=== PATIENT | female | born 1990 | race Caucasian/White ===

== ENCOUNTER 2021-01-05 14:38 | Emergency (ER) | payer MEDICAID ==
[~2021-01-05] VITALS: Ht 167.6 cm; Wt 113.4 kg
[2021-01-05 14:53] VITALS: BP 121/77
--- NOTE | 2021-01-05 14:57 | NUR ---
PROVIDED URINE SPECIMEN AND AMBULATED TO FE
--- NOTE | 2021-01-05 16:00 | NUR ---
ASSUMED CARE. PT IS 2 WEEKS , AND CURRENTLY EXPERIENCING VAGINAL BLEEDING (SPOTTING) PT ALSO REPORTING VERY MILD CRAMPING. PT WAS SEEN TWICE AT [facility] FOR THE VAGINAL BLEEDING, AND WAS TOLD HER HCG LEVELS WERE LOW. CONCERNED. NO PMH NKDA
--- NOTE | 2021-01-05 16:10 | NUR ---
PT TAKEN TO BED 3.
[2021-01-05 16:22] LABS: BASOPHILS # (AUTO) 0.1 K/uL (0.00-0.22); BASOPHILS % (AUTO) 0.5 % (0.0-2.0); EOSINOPHILS # (AUTO) 0.1 K/uL (0-0.4); EOSINOPHILS % (AUTO) 1.3 % (0.0-4.0); HEMATOCRIT 40.1 % (36-48); HEMOGLOBIN 13.2 g/dL (12.0-16.0); LYMPHOCYTES # (AUTO) 1.8 K/uL (2.5-16.5); LYMPHOCYTES % (AUTO) 18.3 % (20.5-51.1); MEAN CORPUSCULAR HEMOGLOBIN 29 pg (27-31); MEAN CORPUSCULAR HGB CONC 33 g/dL (33-37); MEAN CORPUSCULAR VOLUME 88.6 fL (80-94); MONOCYTES # (AUTO) 0.7 K/uL (0.8-1.0); MONOCYTES % (AUTO) 7.2 % (1.7-9.3); NEUTROPHILS % (AUTO) 72.7 % (42.2-75.2); PLATELET COUNT (AUTO) 296 K/uL (140-450); RED BLOOD CELL COUNT(AUTO) 4.53 MIL/uL (4.20-5.40); RED CELL DISTRIBUTION WIDTH 13.6 % (11.6-13.7); WHITE BLOOD COUNT (AUTO) 9.6 K/uL (4.8-10.8)
--- NOTE | 2021-01-05 16:47 | NUR ---
TO ULTRASOUND FOR EXAM.
[2021-01-05 16:49] LABS: ANION GAP 11.4 (8-16); CARBON DIOXIDE 26.9 mmol/L (21-32); CREATININE 0.8 mg/dL (0.6-1.3); POTASSIUM 4.3 mmol/L (3.5-5.1)
--- NOTE | 2021-01-05 17:42 | NUR ---
DR JARA IN TO DISCUSS RESULTS WITH PATIENT AND PLAN TO FOLLOW UP WITH PMD.
[2021-01-05 17:45] VITALS: BP 129/61
--- NOTE | 2021-01-05 17:45 | NUR ---
Patient discharged with v/s stable. Written and verbal after care instructions given and explained. Patient verbalized understanding. Ambulatory with steady gait. All questions addressed prior to discharge. Advised to follow up with PMD. Copy of labs and US given to patient for follow up.
== END 2021-01-05 17:45 | disposition home or self-care (01) ==
LOC: MED 14:38
DX: O03.9 Complete or unspecified spontaneous abortion without complication (principal); Z3A.01 Less than 8 weeks gestation of pregnancy
CPT/HCPCS: 36415; 76817; 80048; 81002; 81025; 84702; 85025; 86886; 86900; 86901; 99284

== ENCOUNTER 2021-01-26 20:35 | Emergency (ER) | payer MEDICAID ==
[~2021-01-26] VITALS: Ht 165.1 cm; Wt 96.2 kg
[2021-01-26 20:45] VITALS: BP 136/82
--- NOTE | 2021-01-26 20:48 | NUR ---
TO LOBBY A/W BED AMBULATORY
[2021-01-26 21:33] LABS: BASOPHILS # (AUTO) 0.1 K/uL (0.00-0.22); BASOPHILS % (AUTO) 0.6 % (0.0-2.0); EOSINOPHILS # (AUTO) 0.2 K/uL (0-0.4); EOSINOPHILS % (AUTO) 2.1 % (0.0-4.0); HEMATOCRIT 38.8 % (36-48); HEMOGLOBIN 12.7 g/dL (12.0-16.0); LYMPHOCYTES % (AUTO) 21.2 % (20.5-51.1); MEAN CORPUSCULAR HEMOGLOBIN 29 pg (27-31); MEAN CORPUSCULAR HGB CONC 33 g/dL (33-37); MEAN CORPUSCULAR VOLUME 88.3 fL (80-94); MONOCYTES # (AUTO) 0.8 K/uL (0.8-1.0); MONOCYTES % (AUTO) 8.6 % (1.7-9.3); NEUTROPHILS # (AUTO) 6.4 K/uL (1.8-7.7); NEUTROPHILS % (AUTO) 67.5 % (42.2-75.2); PLATELET COUNT (AUTO) 294 K/uL (140-450); RED CELL DISTRIBUTION WIDTH 13.9 % (11.6-13.7); WHITE BLOOD COUNT (AUTO) 9.4 K/uL (4.8-10.8)
--- NOTE | 2021-01-26 21:38 | NUR ---
US AT BEDSIDE
[2021-01-26] MEDS ORDERED: NAPROXEN 500 MG TAB PO SCH (22:00)
[2021-01-26 22:16] LABS: APPEARANCE,URINE CLEAR (CLEAR); BILIRUBIN,URINE NEGATIVE (NEGATIVE); BLOOD, URINE TRACE-I (NEGATIVE); COLOR,URINE YELLOW (YELLOW); LEUKOCYTE ESTERASE ,URINE NEGATIVE (NEGATIVE); NITRITE, URINE NEGATIVE (NEGATIVE); PH,URINE 6.5 (5.0-9.0); UGLUCOSE NEGATIVE (NEGATIVE)
[2021-01-26] MEDS ORDERED: NAPR-54 PO (22:22)
[2021-01-26 22:25] LABS: RBC,URINE 0-5 /HPF (0-5); WBC,URINE 0-5 /HPF (0-5)
== END 2021-01-26 22:45 | disposition home or self-care (01) ==
LOC: MED 20:35
DX: O26.891 Other specified pregnancy related conditions, first trimester (principal); R10.30 Lower abdominal pain, unspecified; Z3A.01 Less than 8 weeks gestation of pregnancy; Z79.899 Other long term (current) drug therapy; Z98.890 Other specified postprocedural states
CPT/HCPCS: 36415; 76817; 81001; 81025; 84702; 85025; 86900; 86901; 87086; 99284

== ENCOUNTER 2021-02-14 23:30 | Emergency (ER) | payer MEDICAID ==
[~2021-02-14] VITALS: Ht 165.1 cm; Wt 97.5 kg
[~2021-02-14 23:30] MED LIST: NAPR-54 PO
[2021-02-14 23:56] VITALS: BP 128/74
--- NOTE | 2021-02-15 00:40 | NUR ---
PT AMBULATED TO BED #4
[2021-02-15] MEDS ORDERED: MORPHINE SULFATE 4 MG/ML SYR IVP ONE (00:45)
--- NOTE | 2021-02-15 00:45 | NUR ---
COVERING PRIMARY RN FOR LUNCH RELIEF. SEE COMPLETE ASSESSMENT
--- NOTE | 2021-02-15 00:46 | NUR ---
PT C/O 10/10 LOWER ABD PAIN. VERBAL ORDER FOR 4MG MORPHINE IVP. ORDER CARRIED OUT.
[2021-02-15] MEDS ORDERED: NACL 0.9% 1,000 ML IV ONE (00:55)
[2021-02-15 00:56] LABS: BASOPHILS # (AUTO) 0.1 K/uL (0.00-0.22); BASOPHILS % (AUTO) 0.6 % (0.0-2.0); EOSINOPHILS # (AUTO) 0.2 K/uL (0-0.4); EOSINOPHILS % (AUTO) 2.3 % (0.0-4.0); HEMATOCRIT 37.9 % (36-48); HEMOGLOBIN 12.6 g/dL (12.0-16.0); LYMPHOCYTES # (AUTO) 1.5 K/uL (2.5-16.5); MEAN CORPUSCULAR HEMOGLOBIN 29 pg (27-31); MEAN CORPUSCULAR HGB CONC 33 g/dL (33-37); MEAN CORPUSCULAR VOLUME 87.7 fL (80-94); MONOCYTES # (AUTO) 0.9 K/uL (0.8-1.0); MONOCYTES % (AUTO) 10.2 % (1.7-9.3); NEUTROPHILS # (AUTO) 6.3 K/uL (1.8-7.7); NEUTROPHILS % (AUTO) 69.9 % (42.2-75.2); PLATELET COUNT (AUTO) 288 K/uL (140-450); RED BLOOD CELL COUNT(AUTO) 4.32 MIL/uL (4.20-5.40); RED CELL DISTRIBUTION WIDTH 13.5 % (11.6-13.7)
--- NOTE | 2021-02-15 01:00 | NUR ---
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
[2021-02-15 01:09] LABS: ALBUMIN 3.9 g/dL (3.4-5.0); ANION GAP 8.1 (8-16); CARBON DIOXIDE 31.9 mmol/L (21-32); CREATININE 0.8 mg/dL (0.6-1.3); TOTAL BILIRUBIN 0.8 mg/dL (0.0-1.0)
--- NOTE | 2021-02-15 01:16 | NUR ---
ULTRASOUND AT BEDSIDE.
--- NOTE | 2021-02-15 02:03 | NUR ---
pt ambulated to with steady gait.
--- NOTE | 2021-02-15 02:06 | NUR ---
PT AMBULATED BACK TO BED WITH STEADY GAIT.
[2021-02-15] MEDS ORDERED: NAPR-54 PO (02:30)
[2021-02-15 02:32] VITALS: BP 128/74
== END 2021-02-15 02:32 | disposition home or self-care (01) ==
LOC: MED 23:30
DX: O03.9 Complete or unspecified spontaneous abortion without complication (principal)
CPT/HCPCS: 36415; 76817; 80053; 81002; 81025; 84702; 85025; 86900; 86901; 96361; 96374; 99284; J2270; J7030; Q0092

== ENCOUNTER 2023-10-14 22:38 | Emergency (ER) | payer BC, MEDICAID ==
[~2023-10-14] VITALS: Ht 165.1 cm; Wt 100.7 kg
[~2023-10-14 22:38] MED LIST changes: +NAPR-337 PO; -NAPR-54 PO
[2023-10-14 22:54] VITALS: BP 135/78; PULSE 90; RESP 18; O2SAT 98
[2023-10-15] MEDS: ACETAMINOPHEN EXTRA STRENGTH 500 MG TAB PO ONE (00:08)
[2023-10-15 00:19] LABS: BASOPHILS % (AUTO) 0.5 % (0.0-2.0); EOSINOPHILS # (AUTO) 0.2 K/uL (0-0.4); EOSINOPHILS % (AUTO) 1.8 % (0.0-4.0); HEMATOCRIT 40.3 % (36-48); HEMOGLOBIN 13.7 g/dL (12.0-16.0); LYMPHOCYTES # (AUTO) 1.8 K/uL (2.5-16.5); LYMPHOCYTES % (AUTO) 21.8 % (20.5-51.1); MEAN CORPUSCULAR HEMOGLOBIN 29 pg (27-31); MEAN CORPUSCULAR HGB CONC 34 g/dL (33-37); MEAN CORPUSCULAR VOLUME 85.9 fL (80-94); MONOCYTES # (AUTO) 0.8 K/uL (0.8-1.0); MONOCYTES % (AUTO) 9.5 % (1.7-9.3); NEUTROPHILS # (AUTO) 5.6 K/uL (1.8-7.7); NEUTROPHILS % (AUTO) 66.4 % (42.2-75.2); PLATELET COUNT (AUTO) 261 K/uL (140-450); RED BLOOD CELL COUNT(AUTO) 4.69 MIL/uL (4.20-5.40); RED CELL DISTRIBUTION WIDTH 13.9 % (11.6-13.7); WHITE BLOOD COUNT (AUTO) 8.4 K/uL (4.8-10.8)
[2023-10-15 00:35] LABS: ANION GAP 13.4 (8-16); CALCIUM 9.2 mg/dL (8.5-10.1); CARBON DIOXIDE 28.3 mmol/L (21-32); CREATININE 0.8 mg/dL (0.6-1.3); POTASSIUM 3.7 mmol/L (3.5-5.1)
[2023-10-15 00:54] LABS: ALBUMIN 3.4 g/dL (3.4-5.0); BILIRUBIN,DIRECT 0.1 mg/dL (0.0-0.3); TOTAL BILIRUBIN 0.5 mg/dL (0.0-1.0); TOTAL PROTEIN, SERUM 7.5 g/dL (6.4-8.2)
[2023-10-15 01:45] VITALS: O2SAT 98
[2023-10-15 01:51] LABS: APPEARANCE,URINE CLEAR (CLEAR); BILIRUBIN,URINE NEGATIVE (NEGATIVE); BLOOD, URINE TRACE-I (NEGATIVE); COLOR,URINE YELLOW (YELLOW); LEUKOCYTE ESTERASE ,URINE NEGATIVE (NEGATIVE); NITRITE, URINE NEGATIVE (NEGATIVE); PROTEIN,URINE NEGATIVE (NEGATIVE); UGLUCOSE NEGATIVE (NEGATIVE); UROBILINOGEN,URINE 0.2 EU/dL (0.2 - 1)
[2023-10-15 01:54] LABS: BACTERIA,URINE >30 (MANY) /HPF (None Seen); RBC,URINE 0-5 /HPF (0-5); WBC,URINE 0-5 /HPF (0-5)
[2023-10-15] MEDS: KETOROLAC 60 MG/2 ML VIAL IM ONE (01:54)
[2023-10-15 01:55] LABS: MUCUS,URINE 1+ /LPF (None Seen); SQUAMOUS EPITHELIAL CELL,UR 0-3 (FEW) /LPF (0-3 (FEW))
[2023-10-15] MEDS: IBUPROFEN 600 MG TAB PO ONE (02:06)
[2023-10-15] MEDS: CIPROFLOXACIN 250 MG TAB PO ONE (02:13)
[2023-10-15] MEDS ORDERED: CIPR500T4 PO (02:37)
== END 2023-10-15 02:45 | disposition home or self-care (01) ==
LOC: MED 22:38
DX: O23.41 Unspecified infection of urinary tract in pregnancy, first trimester (principal); O03.9 Complete or unspecified spontaneous abortion without complication; Z3A.12 12 weeks gestation of pregnancy; Z79.899 Other long term (current) drug therapy
CPT/HCPCS: 36415; 76817; 80048; 80076; 81001; 84702; 85025; 86900; 86901; 87086; 99284; Q0092; J1885